=== PATIENT | male | born 1990 | race Caucasian/White ===

== ENCOUNTER 2017-08-30 15:15 | Emergency (ER) | payer MEDICAID | END 2017-08-30 16:01 | disposition home or self-care (01) | LOC: D.ER 15:15 | DX: F41.1 Generalized anxiety disorder (principal); Z76.0 Encounter for issue of repeat prescription ==

== ENCOUNTER 2018-08-16 14:49 | Emergency (ER) | payer SELFPAY ==
[~2018-08-16] VITALS: Ht 175.3 cm; Wt 77.3 kg
[2018-08-16 15:27] VITALS: Ht 175.3 cm; Wt 77.3 kg
[2018-08-16] MEDS ORDERED: KLONOPIN1 MG PO (15:29)
[2018-08-16] MEDS ORDERED: PAXIL30 MG PO (15:30)
[2018-08-16 16:11] LABS: BASOPHILS 0.6 % (0-2); EOSINOPHILS 5.8 % (0-7); HEMATOCRIT 47.4 % (42.0-54.0); HEMOGLOBIN 17.1 g/dL (13.5-17.5); IMMATURE GRANULOCYTES 0.3 % (0-5); MCH 31.3 pg (26.0-34.0); MCHC 36.1 g/dL (31.0-37.0); MCV 86.8 fL (80.0-100.0); MEAN PLATELET VOLUME 10.3 fL (7.4-10.4); MONOCYTES 7.4 % (2-11); NEUTROPHILS 50.9 % (40-80); PLATELET COUNT 175 10x3/uL (130-400); RBC 5.46 10x6/uL (4.20-6.10); RDW 12.5 % (11.5-14.5); WBC 7.3 10x3/uL (4.8-10.8)
[2018-08-16 16:13] LABS: APPEARANCE CLEAR (CLEAR); BILIRUBIN NEGATIVE (NEGATIVE); COLOR YELLOW (YELLOW); GLUCOSE NEGATIVE (NEGATIVE); KETONE NEGATIVE (NEGATIVE); NITRITE NEGATIVE (NEGATIVE); PROTEIN NEGATIVE (NEGATIVE); SPECIFIC GRAVITY 1.015 (1.005-1.020); UROBILINOGEN NORMAL (NORMAL)
[2018-08-16 16:31] LABS: ALBUMIN 4.1 g/dL (3.4-5.0); ALKALINE PHOSPHATASE 75 U/L (46-116); ALT (SGPT) 68 U/L (10-68); AMYLASE - SERUM 59 U/L (25-115); BILIRUBIN - TOTAL 0.38 mg/dL (0.2-1.3); CALC OSMOLALITY 280 mosm/kg (275-300); CALCIUM 9.3 mg/dL (8.5-10.1); CARBON DIOXIDE 28.8 mmol/L (21.0-32.0); CHLORIDE - SERUM 102 mmol/L (98-107); CREATININE - SERUM 1.1 mg/dL (0.6-1.3); GLUCOSE 78 mg/dL (74-106); LIPASE 162 U/L (73-393); POTASSIUM - SERUM 4.4 mmol/L (3.5-5.1); PROTEIN - SERUM 7.6 g/dL (6.4-8.2); SODIUM 141 mmol/L (136-145); UREA NITROGEN 15 mg/dL (7-18); eGFR NON AFRICAN AMERICAN 86 mL/min (90-120)
[2018-08-16] MEDS ORDERED: ZOFRAN4 MG PO (19:35)
[2018-08-16 19:54] VITALS: BP 121/71
== END 2018-08-16 20:01 | disposition home or self-care (01) ==
LOC: D.ER 14:49
PROVIDERS: Family Medicine
DX: A08.4 Viral intestinal infection, unspecified (principal)

== ENCOUNTER 2018-08-24 02:03 | Emergency (ER) | payer SELFPAY ==
[~2018-08-24] VITALS: Ht 175.3 cm; Wt 77.3 kg
[~2018-08-24 02:03] MED LIST: KLONOPIN1 MG PO; PAXIL30 MG PO; ZOFRAN4 MG PO
[2018-08-24 02:09] VITALS: Ht 175.3 cm; Wt 77.3 kg
[2018-08-24 03:14] LABS: BASOPHILS 0.3 % (0-2); EOSINOPHILS 1.6 % (0-7); HEMOGLOBIN 17.6 g/dL (13.5-17.5); IMMATURE GRANULOCYTES 0.5 % (0-5); LYMPHOCYTES 14.8 % (15-50); MCH 31.2 pg (26.0-34.0); MCHC 35.9 g/dL (31.0-37.0); MCV 86.7 fL (80.0-100.0); MEAN PLATELET VOLUME 10.3 fL (7.4-10.4); MONOCYTES 4.2 % (2-11); NEUTROPHILS 78.6 % (40-80); PLATELET COUNT 207 10x3/uL (130-400); RBC 5.65 10x6/uL (4.20-6.10); RDW 12.6 % (11.5-14.5); WBC 11.2 10x3/uL (4.8-10.8)
[2018-08-24 03:28] LABS: ALBUMIN 4.4 g/dL (3.4-5.0); ALKALINE PHOSPHATASE 85 U/L (46-116); ALT (SGPT) 67 U/L (10-68); BILIRUBIN - TOTAL 0.73 mg/dL (0.2-1.3); CALC OSMOLALITY 274 mosm/kg (275-300); CALCIUM 8.7 mg/dL (8.5-10.1); CARBON DIOXIDE 29.1 mmol/L (21.0-32.0); CHLORIDE - SERUM 103 mmol/L (98-107); CREATININE - SERUM 1.3 mg/dL (0.6-1.3); GLUCOSE 100 mg/dL (74-106); POTASSIUM - SERUM 4.4 mmol/L (3.5-5.1); PROTEIN - SERUM 8.1 g/dL (6.4-8.2); SODIUM 137 mmol/L (136-145); UREA NITROGEN 16 mg/dL (7-18); eGFR NON AFRICAN AMERICAN 71 mL/min (90-120)
[2018-08-24 03:39] LABS: CKMB 2.7 U/L (0.0-3.6); CREATINE KINASE 299 UL (21-232); MAGNESIUM - SERUM 2.2 mg/dL (1.8-2.4); TROPONIN-I < 0.017 ng/mL (0.000-0.060)
[2018-08-24 04:45] VITALS: BP 123/79
== END 2018-08-24 04:45 | disposition home or self-care (01) ==
LOC: D.ER 02:03
PROVIDERS: Family Medicine
DX: F10.129 Alcohol abuse with intoxication, unspecified (principal); T14.8XXA Other injury of unspecified body region, initial encounter; X58.XXXA Exposure to other specified factors, initial encounter; Y93.89 Activity, other specified; Y92.89 Other specified places as the place of occurrence of the external cause; S06.0X9A Concussion with loss of consciousness of unspecified duration, initial encounter; F17.200 Nicotine dependence, unspecified, uncomplicated

== ENCOUNTER 2018-08-30 09:39 | Emergency (ER) | payer SELFPAY ==
[~2018-08-30] VITALS: Ht 175.3 cm; Wt 75.0 kg
[2018-08-30 09:54] VITALS: BP 141/77; Ht 175.3 cm; Wt 75.0 kg
== END 2018-08-30 16:49 | disposition home or self-care (01) ==
LOC: D.ER 09:39
DX: S09.90XD Unspecified injury of head, subsequent encounter (principal); X58.XXXD Exposure to other specified factors, subsequent encounter

== ENCOUNTER 2018-10-03 20:41 | Emergency (ER) | payer MEDICAID ==
[~2018-10-03] VITALS: Ht 175.3 cm; Wt 81.8 kg
[2018-10-03 20:49] VITALS: Ht 175.3 cm; Wt 81.8 kg
[2018-10-03] MEDS ORDERED: PROAIR (20:51)
[2018-10-03] MEDS ORDERED: AUGMENTIN 875-11 TAB PO (22:21)
[2018-10-03] MEDS ORDERED: KLONOPIN1 MG PO (22:21)
[2018-10-03] MEDS ORDERED: PAXIL30 MG PO (22:21)
[2018-10-03 22:42] VITALS: BP 123/78
[2018-10-05 07:23] LABS: HEPATITIS C ANTIBODY <0.1 S/CO RAT (0.0-0.9)
[2018-10-06 14:12] LABS: HIV-1 RNA BY PCR <20 (())
== END 2018-10-03 22:42 | disposition home or self-care (01) ==
LOC: D.ER 20:41
PROVIDERS: Family Medicine
DX: S60.571A Other superficial bite of hand of right hand, initial encounter (principal); Y04.1XXA Assault by human bite, initial encounter; Y93.89 Activity, other specified; Y92.89 Other specified places as the place of occurrence of the external cause; Z20.5 Contact with and (suspected) exposure to viral hepatitis

== ENCOUNTER 2018-12-09 11:22 | Emergency (ER) | payer MEDICAID ==
[~2018-12-09 11:22] MED LIST changes: +AUGMENTIN 875-11 TAB PO; +PROAIR
[2018-12-09 11:25] VITALS: BMI 25.9
[2018-12-09 11:47] LABS: BASOPHILS 0.4 % (0-2); EOSINOPHILS 7.7 % (0-7); HEMATOCRIT 46.1 % (42.0-54.0); HEMOGLOBIN 16.7 g/dL (13.5-17.5); IMMATURE GRANULOCYTES 0.1 % (0-5); LYMPHOCYTES 32.6 % (15-50); MCH 31.7 pg (26.0-34.0); MCHC 36.2 g/dL (31.0-37.0); MCV 87.6 fL (80.0-100.0); MEAN PLATELET VOLUME 10.4 fL (7.4-10.4); MONOCYTES 7.9 % (2-11); NEUTROPHILS 51.3 % (40-80); PLATELET COUNT 182 10x3/uL (130-400); RBC 5.26 10x6/uL (4.20-6.10); RDW 12.3 % (11.5-14.5); WBC 6.9 10x3/uL (4.8-10.8)
[2018-12-09 12:03] LABS: ALBUMIN 4.3 g/dL (3.4-5.0); ALKALINE PHOSPHATASE 90 U/L (46-116); ALT (SGPT) 75 U/L (10-68); BILIRUBIN - TOTAL 0.54 mg/dL (0.2-1.3); CALC OSMOLALITY 282 mosm/kg (275-300); CALCIUM 9.1 mg/dL (8.5-10.1); CARBON DIOXIDE 28.1 mmol/L (21.0-32.0); CHLORIDE - SERUM 104 mmol/L (98-107); CREATININE - SERUM 1.2 mg/dL (0.6-1.3); GLUCOSE 89 mg/dL (74-106); POTASSIUM - SERUM 3.9 mmol/L (3.5-5.1); PROTEIN - SERUM 7.4 g/dL (6.4-8.2); SODIUM 141 mmol/L (136-145); UREA NITROGEN 20 mg/dL (7-18); eGFR NON AFRICAN AMERICAN 78 mL/min (90-120)
[2018-12-09] MEDS ORDERED: ZOFRAN ODT4 MG/UDTAB PO (12:06)
[2018-12-09 12:08] LABS: AMYLASE - SERUM 49 U/L (25-115); LIPASE 150 U/L (73-393)
[2018-12-09 12:09] LABS: TROPONIN-I < 0.017 ng/mL (0.000-0.060)
[2018-12-09 13:13] VITALS: BP 99/51
== END 2018-12-09 13:08 | disposition home or self-care (01) ==
LOC: D.ER 11:22
PROVIDERS: Emergency Medicine
DX: R11.10 Vomiting, unspecified (principal)

== ENCOUNTER 2019-01-28 21:11 | Emergency (ER) | payer MEDICAID ==
[~2019-01-28] VITALS: Ht 175.3 cm; Wt 79.5 kg
[~2019-01-28 21:11] MED LIST changes: +ZOFRAN ODT4 MG/UDTAB PO
[2019-01-28 21:14] VITALS: Ht 175.3 cm; Wt 79.5 kg
[2019-01-28] MEDS ORDERED: ACETAMINOPHEN500 M1 PO (23:53)
[2019-01-28] MEDS ORDERED: IBUPROFEN800 MG PO (23:53)
[2019-01-28] MEDS ORDERED: CYCLOBENZAPRINE10 MG PO (23:53)
[2019-01-29 00:32] VITALS: BP 127/66
== END 2019-01-29 00:32 | disposition home or self-care (01) ==
LOC: D.ER 21:11
DX: H93.12 Tinnitus, left ear (principal); S00.432A Contusion of left ear, initial encounter; Y04.2XXA Assault by strike against or bumped into by another person, initial encounter; Y93.89 Activity, other specified; Y92.89 Other specified places as the place of occurrence of the external cause; M79.18 Myalgia, other site

== ENCOUNTER 2020-01-04 01:06 | Emergency (ER) | payer MEDICAID ==
[~2020-01-04] VITALS: Ht 175.3 cm; Wt 81.8 kg
[~2020-01-04 01:06] MED LIST changes: +ACETAMINOPHEN500 M1 PO; +CYCLOBENZAPRINE10 MG PO; +IBUPROFEN800 MG PO
[2020-01-04 01:20] VITALS: BP 134/78; Ht 175.3 cm; Wt 81.8 kg
[2020-01-04] MEDS ORDERED: BUTALB-APAP-CA1 EACH PO (01:23)
== END 2020-01-04 01:40 | disposition home or self-care (01) ==
LOC: D.ER 01:06
DX: R51 Headache (principal); J45.909 Unspecified asthma, uncomplicated

== ENCOUNTER 2020-01-27 17:35 | Emergency (ER) | payer MEDICAID ==
[~2020-01-27] VITALS: Ht 175.3 cm; Wt 81.8 kg
[~2020-01-27 17:35] MED LIST changes: +BUTALB-APAP-CA1 EACH PO
[2020-01-27 17:46] VITALS: Ht 175.3 cm; Wt 81.8 kg
[2020-01-27] MEDS ORDERED: BUTALB-APAP-CA1 EACH PO (18:07)
[2020-01-27 18:18] VITALS: BP 128/81
== END 2020-01-27 18:18 | disposition home or self-care (01) ==
LOC: D.ER 17:35
DX: R51 Headache (principal); J45.909 Unspecified asthma, uncomplicated

== ENCOUNTER 2020-02-25 22:06 | Emergency (ER) | payer MEDICAID ==
[~2020-02-25] VITALS: Ht 175.3 cm; Wt 81.8 kg
[2020-02-25 22:10] VITALS: BP 143/76; Ht 175.3 cm; Wt 81.8 kg
[2020-02-25] MEDS ORDERED: BUTALB-APAP-CA1 EACH PO (22:48)
== END 2020-02-25 23:30 | disposition home or self-care (01) ==
LOC: D.ER 22:06
DX: G43.909 Migraine, unspecified, not intractable, without status migrainosus (principal); J45.909 Unspecified asthma, uncomplicated; Z72.0 Tobacco use